=== PATIENT | male | born 1940 | race Caucasian/White ===

== ENCOUNTER 2017-08-05 15:20 | Emergency (ER) | payer OTHER ==
[~2017-08-05] VITALS: Ht 162.6 cm; Wt 57.2 kg
== END 2017-08-05 17:56 | disposition home or self-care (01) ==
LOC: ER 15:20
DX: M75.41 Impingement syndrome of right shoulder (principal); M25.511 Pain in right shoulder

== ENCOUNTER 2017-08-19 10:30 | Emergency (ER) | payer OTHER ==
[~2017-08-19] VITALS: Ht 162.6 cm; Wt 57.2 kg
[2017-08-19] MEDS ORDERED: MEDROL4 MG (10:49)
[2017-08-19] MEDS ORDERED: ULTRACET (10:50)
== END 2017-08-19 15:03 | disposition home or self-care (01) ==
LOC: ER 10:30
DX: M25.511 Pain in right shoulder (principal)

== ENCOUNTER → 2017-08-20 16:52 | Outpatient (CLI) | payer OTHER ==
[~2017-08-20 16:52] MED LIST: MEDROL4 MG; ULTRACET
== END | disposition home or self-care (01) ==
LOC: RAD 16:52
DX: Z76.89 Persons encountering health services in other specified circumstances (principal); M25.561 Pain in right knee

== ENCOUNTER 2017-08-21 07:43 | Outpatient (CLI) | payer OTHER | END 2017-08-21 08:16 | disposition home or self-care (01) | LOC: LAB 07:43 | DX: D64.89 Other specified anemias (principal); E88.89 Other specified metabolic disorders; D68.8 Other specified coagulation defects; N39.0 Urinary tract infection, site not specified ==

== ENCOUNTER 2017-08-21 08:04 | Outpatient (CLI) | payer OTHER | END 2017-08-21 08:14 | disposition home or self-care (01) | LOC: EKG 08:04 | DX: I49.8 Other specified cardiac arrhythmias (principal) ==

== ENCOUNTER → 2017-08-23 18:38 | Outpatient (CLI) | payer OTHER | END | disposition home or self-care (01) | LOC: RAD 18:38 | DX: M75.31 Calcific tendinitis of right shoulder (principal) ==

== ENCOUNTER 2017-08-28 17:41 | Emergency (ER) | payer OTHER ==
[~2017-08-28] VITALS: Ht 162.6 cm; Wt 57.2 kg
== END 2017-08-28 19:42 | disposition home or self-care (01) ==
LOC: ER 17:41
DX: G89.18 Other acute postprocedural pain (principal); M25.511 Pain in right shoulder

== ENCOUNTER 2017-09-13 10:09 | Outpatient (CLI) | payer OTHER | END 2017-09-13 10:18 | disposition home or self-care (01) | LOC: LAB 10:09 | DX: D64.89 Other specified anemias (principal); M06.4 Inflammatory polyarthropathy ==

== ENCOUNTER 2017-12-13 14:28 | Outpatient (CLI) | payer OTHER | END 2017-12-13 14:39 | disposition home or self-care (01) | LOC: RAD 14:28 | DX: M25.561 Pain in right knee (principal); M75.121 Complete rotator cuff tear or rupture of right shoulder, not specified as traumatic ==

== ENCOUNTER 2018-01-08 14:38 | Outpatient (CLI) | payer OTHER | END 2018-01-08 16:49 | disposition home or self-care (01) | LOC: NUCLEAR 14:38 | DX: M85.9 Disorder of bone density and structure, unspecified (principal); M81.0 Age-related osteoporosis without current pathological fracture ==

== ENCOUNTER 2018-05-03 10:29 | Outpatient (CLI) | payer OTHER | END 2018-05-03 11:23 | disposition home or self-care (01) | LOC: LAB 10:29 → RAD 10:29 → LAB 11:23 | DX: D64.89 Other specified anemias (principal); E88.89 Other specified metabolic disorders; D68.8 Other specified coagulation defects; N39.0 Urinary tract infection, site not specified; A49.02 Methicillin resistant Staphylococcus aureus infection, unspecified site; I49.8 Other specified cardiac arrhythmias ==

== ENCOUNTER 2018-05-09 09:26 | Outpatient (CLI) | payer OTHER ==
[2018-05-09] MEDS ORDERED: JALYN 0.5-0.41 EACH PO (14:28)
[2018-05-09] MEDS ORDERED: ALBUTEROL0.63 MG/3 IH (14:28)
== END 2018-05-09 09:32 | disposition home or self-care (01) ==
LOC: LAB 09:26
DX: D64.89 Other specified anemias (principal)

== ENCOUNTER 2018-05-10 10:17 | Inpatient (IN) | payer OTHER ==
[~2018-05-10] VITALS: Ht 162.6 cm; Wt 59.0 kg
[~2018-05-10 10:17] MED LIST changes: +ALBUTEROL0.63 MG/3 IH; +JALYN 0.5-0.41 EACH PO
[2018-05-16] MEDS ORDERED: XARELTO10 MG PO (08:33)
== END 2018-05-16 13:54 | disposition home or self-care (01) | DRG 470 ==
LOC: O/R 05-13 06:00 → RECOVERY 05-13 07:00 → SURH 05-13 15:21
PROVIDERS: Orthopaedic Surgery
PROC: 4A033R1 Measurement of Arterial Saturation, Peripheral, Percutaneous Approach (ICD-10-PCS; 2018-05-13)
PROC: 0SRC0J9 Replacement of Right Knee Joint with Synthetic Substitute, Cemented, Open Approach (ICD-10-PCS; principal; 2018-05-13 07:00)
PROC: BW28ZZZ Computerized Tomography (CT Scan) of Head (ICD-10-PCS; 2018-05-14)
DX: M17.11 Unilateral primary osteoarthritis, right knee (principal); J45.998 Other asthma; N40.0 Benign prostatic hyperplasia without lower urinary tract symptoms

== ENCOUNTER 2021-08-15 10:22 | Outpatient (CLI) | payer OTHER ==
[~2021-08-15 10:22] MED LIST changes: +XARELTO10 MG PO
== END 2021-08-15 10:31 | disposition home or self-care (01) ==
LOC: SONOGRAMA 10:22
PROVIDERS: ATTEND Pathology Anatomic Pathology & Clinical Pathology
DX: R22.1 Localized swelling, mass and lump, neck (principal)